=== PATIENT | female | born 1950 | race Caucasian/White ===

== ENCOUNTER 2024-03-10 18:22 | Inpatient (IN) | payer MEDICARE, OTHER ==
[~2024-03-10] VITALS: Ht 160 cm; Wt 97.5 kg
[2024-03-10 19:43] LABS: BASOPHILS # (AUTO) 0.1 K/uL (0.0-0.2); BASOPHILS % (AUTO) 0.5 % (0.0-2.0); EOSINOPHILS # (AUTO) 0.2 K/uL (0.0-0.7); EOSINOPHILS % (AUTO) 1.4 % (0.0-6.0); HEMATOCRIT 29 % (33-45); HEMOGLOBIN 8.9 g/dL (11.5-14.8); LYMPHOCYTES # (AUTO) 2.6 K/uL (0.8-4.8); LYMPHOCYTES % (AUTO) 18.5 % (20.0-44.0); MEAN CORPUSCULAR HEMOGLOBIN 24 PG (26.0-33.0); MEAN CORPUSCULAR HGB CONC 31 g/dl (31.0-36.0); MEAN CORPUSCULAR VOLUME 78 fL (82-100); MONOCYTES # (AUTO) 1.4 K/uL (0.1-1.30); MONOCYTES % (AUTO) 9.5 % (2.0-12.0); NEUTROPHILS % (AUTO) 70.1 % (43.0-81.0); RED BLOOD CELL COUNT(AUTO) 3.68 MIL/uL (4.0-5.2); RED CELL DISTRIBUTION WIDTH 16.7 % (11.5-15.0); WHITE BLOOD COUNT (AUTO) 14.2 K/uL (4.3-11.0)
[2024-03-10 19:45] LABS: CALCIUM, SERUM 8.8 mg/dL (8.5-10.1); CARBON DIOXIDE 28 mmol/L (21-32); CHLORIDE 105 mmol/L (98-107); GLUCOSE 118 mg/dL (74-106); POTASSIUM 4.3 mmol/L (3.5-5.1); SODIUM SERUM 138 mmol/L (136-145); UREA NITROGEN, BLOOD 28 mg/dL (7-18)
[2024-03-10 19:50] LABS: INR 1.05 (0.91-1.10); PARTIAL THROMBOPLASTIN TIME 22.5 SEC (24.3-34.3); PROTHROMBIN TIME 10.8 SECS (9.2-11.1)
[2024-03-10] MEDS ORDERED: IV NS 0.9% 250 ML IV ONE (20:00)
[2024-03-10] MEDS ORDERED: IOHEXOL-300 100 ML VIAL IV ONE (20:00)
[2024-03-10 21:04] LABS: PLATELET ESTIMATE ADEQUATE
[2024-03-10 21:05] LABS: ANISOCYTOSIS 1+
[2024-03-10 21:09] LABS: PLATELET COUNT (AUTO) 347 K/uL (150-450)
[2024-03-10] MEDS ORDERED: CEFEPIME 1 GM VIAL ONE (22:28)
[2024-03-10] MEDS ORDERED: VANCOMYCIN 1 GM /D5W 250 ML PB IV ONE (22:28)
[2024-03-10] MEDS: CEFEPIME 1 GM in IV D5W 50 ML IV ONE (22:33)
[2024-03-10] MEDS: VANCOMYCIN 1 GM in IV D5W 250 ML IV ONE (23:06)
[2024-03-11] VITALS: BP 110/55; TEMP 97.7; O2SAT 96
[2024-03-11] MEDS ORDERED: ONDANSETRON HCL/PF 4 MG/2 ML VIAL IVP PRN
[2024-03-11] MEDS ORDERED: MAG HYDROX/AL HYDROX/SIMETH 30 ML UDC PO PRN
[2024-03-11] MEDS ORDERED: ACETAMINOPHEN 325 MG TABLET PO PRN
[2024-03-11] MEDS ORDERED: Z GUARD REMEDY 4 OZ OINT TP PRN
[2024-03-11] MEDS ORDERED: MAGNESIUM HYDROXIDE 30 ML UDC PO PRN
[2024-03-11 04:00] VITALS: BP 95/50; TEMP 98.6; O2SAT 96
[2024-03-11 06:37] LABS: BASOPHILS % (AUTO) 0.2 % (0.0-2.0); EOSINOPHILS # (AUTO) 0.2 K/uL (0.0-0.7); HEMATOCRIT 22 % (33-45); HEMOGLOBIN 7.1 g/dL (11.5-14.8); LYMPHOCYTES # (AUTO) 1.7 K/uL (0.8-4.8); LYMPHOCYTES % (AUTO) 22.5 % (20.0-44.0); MEAN CORPUSCULAR HEMOGLOBIN 25 PG (26.0-33.0); MEAN CORPUSCULAR HGB CONC 32 g/dl (31.0-36.0); MEAN CORPUSCULAR VOLUME 76 fL (82-100); MONOCYTES # (AUTO) 0.9 K/uL (0.1-1.30); MONOCYTES % (AUTO) 12.4 % (2.0-12.0); NEUTROPHILS # (AUTO) 4.7 K/uL (1.8-8.9); NEUTROPHILS % (AUTO) 61.9 % (43.0-81.0); PLATELET COUNT (AUTO) 188 K/uL (150-450); RED BLOOD CELL COUNT(AUTO) 2.91 MIL/uL (4.0-5.2); RED CELL DISTRIBUTION WIDTH 17.2 % (11.5-15.0); WHITE BLOOD COUNT (AUTO) 7.5 K/uL (4.3-11.0)
[2024-03-11 07:13] LABS: CARBON DIOXIDE 27 mmol/L (21-32); CHLORIDE 107 mmol/L (98-107); CREATININE 0.9 mg/dL (0.6-1.3); GLUCOSE 121 mg/dL (74-106); MAGNESIUM 2.1 mg/dL (1.8-2.4); PHOSPHORUS 4.1 mg/dL (2.5-4.9); POTASSIUM 3.9 mmol/L (3.5-5.1); SODIUM SERUM 140 mmol/L (136-145); UREA NITROGEN, BLOOD 25 mg/dL (7-18)
[2024-03-11 08:00] VITALS: BP 102/55; TEMP 97.5; O2SAT 96
[2024-03-11] MEDS: PIPERACILLIN /TAZOBACTAM 3.375 G in IV D5W 50 ML IV ONE (09:01)
[2024-03-11] MEDS: PANTOPRAZOLE 40 MG TABLET.DR PO SCH (09:02)
[2024-03-11] MEDS ORDERED: FURO20TA4 PO (09:13)
[2024-03-11] MEDS ORDERED: PRAV20TA4 PO (09:13)
[2024-03-11] MEDS ORDERED: APIX5TAB PO (09:13)
[2024-03-11] MEDS ORDERED: NIAC500T40 PO (09:13)
[2024-03-11] MEDS ORDERED: NAPR220T66 PO (09:13)
[2024-03-11] MEDS ORDERED: METO25TA4 PO (09:13)
[2024-03-11] MEDS ORDERED: LEVO100T PO (09:13)
[2024-03-11] MEDS ORDERED: CEPH500C2 PO (09:13)
[2024-03-11] MEDS ORDERED: OLME40TA18 PO (09:13)
[2024-03-11] MEDS ORDERED: [UNRECOGNIZED DRUG - OTHER] SL (09:13)
[2024-03-11] MEDS: SILVER NITRATE APPLICATOR 1 EA BOX TP ONE (11:06)
[2024-03-11] MEDS ORDERED: PIPERACILLIN /TAZOBACTAM 3.375 G in IV D5W 100 ML IV SCH (13:00)
[2024-03-11] MEDS ORDERED: VANCOMYCIN 1.5 GM in IV D5W 500 ML IV SCH (14:00)
[2024-03-11 17:10] LABS: HIV-1 p24 ANTIGEN NON REACTIVE (NONREACTIVE); HIV-1/2 ANTIBODY NON REACTIVE (NONREACTIVE)
== END 2024-03-11 14:40 | disposition home health service (06) | DRG 863 ==
LOC: ER 18:31 → TELE1 23:13 → MEDSG1 03-11 10:01
PROVIDERS: ADMIT Nurse Practitioner Family; ATTEND Nurse Practitioner Acute Care
DX: T81.49XA Infection following a procedure, other surgical site, initial encounter (principal); L02.211 Cutaneous abscess of abdominal wall; D62 Acute posthemorrhagic anemia; D68.59 Other primary thrombophilia; Y83.9 Surgical procedure, unspecified as the cause of abnormal reaction of the patient, or of later complication, without mention of misadventure at the time of the procedure; Y92.009 Unspecified place in unspecified non-institutional (private) residence as the place of occurrence of the external cause; R73.9 Hyperglycemia, unspecified; Z79.01 Long term (current) use of anticoagulants; Z88.8 Allergy status to other drugs, medicaments and biological substances; Z98.890 Other specified postprocedural states; Z79.890 Hormone replacement therapy; Z79.899 Other long term (current) drug therapy; E66.01 Morbid (severe) obesity due to excess calories; Z68.38 Body mass index [BMI] 38.0-38.9, adult; I10 Essential (primary) hypertension; I48.0 Paroxysmal atrial fibrillation
CPT/HCPCS: 36415; 80048-TC; 83690-TC; 83735-TC; 84100-TC; 85025-TC; 85730-TC; 86803; 87040-TC; 87806; A4223; A6253; A6403; G0378; J0692; J2543; J3370; J3371; J7050; J7060; Q9967